=== PATIENT | female | born 1960 | race American Indian/Alaskan Native ===

== ENCOUNTER 2018-11-26 21:42 | Emergency (ER) | payer OTHER ==
[2018-11-26 21:53] VITALS: BP 146/53
--- NOTE | 2018-11-26 22:00 | Emergency Department Report ---
Blank Doc - Documentation Documentation: 58 y old female presents t o ED cc of right sided buttock/hip pain, radiating to thigh x july fall some months ago and pain has not mali resolved since has taken pain meds with no relief acc [facility]
[2018-11-27] MEDS ORDERED: TORADOL IM ONE (00:42)
--- NOTE | 2018-11-27 00:48 | Emergency Department Report ---
ED Extremity Problem HPI - General Chief complaint: Extremity Injury, Lower Stated complaint: BACK, R LEG & HIP Time Seen by Provider: 11/26/18 21:57 Source: patient Mode of arrival: Ambulatory Limitations: No Limitations - History of Present Illness Initial comments: Pt is a 58 yo female who presents to the ED with c/o right hip pain that radiates to the right knee that began in Jul. she denies any numbness or weakness. she states that in jul she had a fall and was seen by her PCP and states she had XRs at that time which pt states were normal. Pt states that she went to an urgent care and had XR again which were normal again. Pt states she then went to another ER and had XRs for a third time which were normal again. Pt states she was diagnosed with arthritis and tendonitis. she reports that she was not referred to an orthopedic doctor. she states she has been given naproxen and steroids which did not relieve her pain. she denies any allergies to meds. PMHx hypothyroid. - Related Data Previous Rx's Medication Instructions Recorded Last Taken Type Meloxicam [Mobic] 7.5 mg PO QDAY PRN #20 tablet 11/27/18 Unknown Rx Allergies Allergy/AdvReac Type Severity Reaction Status Date / Time No Known Allergies Allergy Verified 11/26/18 21:46 ED Review of Systems ROS: Stated complaint: BACK, R LEG & HIP Other details as noted in HPI Comment: All other systems reviewed and negative ED Past Medical Hx - Past Medical History Previous Medical History?: No - Surgical History Past Surgical History?: No - Social History Smoking Status: Never Smoker Substance Use Type: None - Medications Home Medications: Home Medications Medication Instructions Recorded Confirmed Last Taken Type Meloxicam [Mobic] 7.5 mg PO QDAY PRN #20 tablet 11/27/18 Unknown Rx ED Physical Exam - General Limitations: No Limitations General appearance: alert, in no apparent distress - Head Head exam: Present: atraumatic, normocephalic - Eye Eye exam: Present: normal appearance - Respiratory Respiratory exam: Present: normal lung sounds bilaterally. Absent: respiratory distress, wheezes, rales, rhonchi, stridor, chest wall tenderness, accessory muscle use, decreased breath sounds, prolonged expiratory - Cardiovascular Cardiovascular Exam: Present: regular rate, normal rhythm, normal heart sounds. Absent: systolic murmur, diastolic murmur, rubs, gallop - Extremities Exam Extremities exam: Present: other (FROM of the right knee and right hip, mild TTP over the right lateral leg from the hip to the knee, neurovascularly intact, no joint laxity ) - Neurological Exam Neurological exam: Present: alert, oriented X3 - Psychiatric Psychiatric exam: Present: normal affect, normal mood - Skin Skin exam: Present: warm, dry, intact ED Course Vital Signs 11/26/18 11/26/18 21:46 21:57 Temperature 98.2 F 98.2 F Pulse Rate 63 65 Respiratory 18 16 Rate Blood Pressure 146/53 Blood Pressure 146/53 [Left] O2 Sat by Pulse 99 99 Oximetry ED Medical Decision Making - Medical Decision Making Pt is a 58 yo female who presents to the ED with c/o right hip pain that radiates to the right knee that began in Jul. she denies any numbness or weakness. she states that in jul she had a fall and was seen by her PCP and states she had XRs at that time which pt states were normal. Pt states that she went to an urgent care and had XR again which were normal again. Pt states she then went to another ER and had XRs for a third time which were normal again. Pt states she was diagnosed with arthritis and tendonitis. she reports that she was not referred to an orthopedic doctor. she states she has been given naproxen and steroids which did not relieve her pain. she denies any allergies to meds. PMHx hypothyroid. pt has TTP over the right lateral leg from the hip to the knee, FROM of the right hip and right knee with no joint laxity and neurovascularly intact. pt given toradol injection for pain while in the ED. will give pt prescription for mobic. advised to please follow up with an orthopedic doctor for further evaluation and management in the next 2-3 days. ma y use ice, rest, heat, epsom salt bath. return to the emergency room for any new or worsening symptoms. Critical care attestation.: If time is entered above; I have spent that time in minutes in the direct care of this critically ill patient, excluding procedure time. ED Disposition Clinical Impression: Chronic right hip pain, Chronic pain of right knee Disposition: TO HOME OR SELFCARE Is pt being admited?: No Does the pt Need Aspirin: No Condition: Stable Instructions: Arthralgia (ED) Additional Instructions: Please take medication as prescribed as needed. Please follow up with Dr. Yu, orthopedic doctor for further evaluation and management in the next 2-3 days. may use ice, rest, heat, epsom salt bath. return to the emergency room for any new or worsening symptoms. Prescriptions: Meloxicam [Mobic] 7.5 mg PO QDAY PRN #20 tablet PRN Reason: Pain, Moderate (4-6) [facility] - 2-3 Days EVER YU MD [Staff Physician] - 2-3 Days Time of Disposition: 00:49 Print Language: BULGARIAN
== END 2018-11-27 01:08 | disposition home or self-care (01) ==
LOC: ED 21:42
DX: G89.29 Other chronic pain (principal); M25.551 Pain in right hip; M25.561 Pain in right knee
CPT/HCPCS: 96372; 99282; J1885